=== PATIENT | female | born 1955 ===

== ENCOUNTER 2019-11-29 01:24 | Outpatient (CLI) | payer SELFPAY ==
[2019-11-29 08:39] LABS: HEMOGLOBIN A1C 5.4 % (4.5-6.2)
[2019-11-29 08:51] LABS: CHOL/HDL RATIO 4.19 (0.00-4.99)
== END 2019-11-29 23:59 | disposition home or self-care (01) ==
LOC: HW HEART 01:24
DX: Z13.6 Encounter for screening for cardiovascular disorders (principal)
CPT/HCPCS: 36415; G0438